=== PATIENT | female | born 1940 | race Caucasian/White ===

== ENCOUNTER 2018-11-02 18:00 | Inpatient (IN) | payer MEDICARE ==
[~2018-11-02] VITALS: Ht 162.6 cm; Wt 69.9 kg
[2018-11-02 18:43] LABS: BASOPHILS ABSOLUTE AUTO 0.12 K/mm3 (0.00-0.23); BASOPHILS PERCENT AUTO 1 % (0-2); EOSINOPHILS PERCENT AUTO 0 % (0-6); Hematocrit 47.6 % (33.0-51.0); Hemoglobin 15.9 g/dL (11.5-16.0); IMMATURE GRAN ABSOLUTE AUTO 0.41 K/mm3 (0.00-0.10); IMMATURE GRAN PERCENT AUTO 2 % (0-1); LYMPHOCYTES ABSOLUTE AUTO 0.33 K/mm3 (0.84-5.20); LYMPHOCYTES PERCENT AUTO 1 % (21-46); MONOCYTES ABSOLUTE AUTO 1.07 K/mm3 (0.16-1.47); MONOCYTES PERCENT AUTO 4 % (4-13); Mean Corpuscular HGB 29.9 pg (26.0-34.0); Mean Corpuscular HGB Conc 33.4 g/dL (31.5-36.5); Mean Corpuscular Volume 90 fL (80-100); Mean Platelet Volume 9.7 fL (9.1-12.4); NEUTROPHILS ABSOLUTE AUTO 24.67 K/mm3 (1.96-9.15); NEUTROPHILS PERCENT AUTO 93 % (41-73); NRBC ABSOLUTE 0.04 K/mm3 (0.00-0.02); NRBC Auto 0.2 /100 WBC (0.0-0.2); Platelet Count 465 K/mm3 (150-400); RDW Coefficient Variation 13.7 % (11.7-14.2); RDW Standard Deviation 44.1 fL (35.1-46.3); Red Blood Cell Count 5.31 M/mm3 (3.80-5.20)
[2018-11-02 18:57] LABS: International Normalized Ratio 1.19; Prothrombin Time Results 12.4 Sec (9.7-11.5)
[2018-11-02 19:03] LABS: BAND PERCENT MAN 33 % (0-8); BASOPHILS PERCENT MAN 0 % (0-2); EOSINOPHILS PERCENT MAN 0 % (0-6); METAMYELOCYTE ABSOLUTE MAN 0.79 K/mm3 (0.00-0.00); METAMYELOCYTE PERCENT MAN 3 % (0-0); MONOCYTES ABSOLUTE MAN 0.26 K/mm3 (0.16-1.47); MONOCYTES PERCENT MAN 1 % (4-13); NEUTROPHILS ABSOLUTE MAN 25.53 K/mm3 (1.96-9.15); SEG NEUTROPHILS PERCENT MAN 63 % (41-73); TOTAL CELLS COUNTED 100
[2018-11-02 19:10] LABS: Alanine Aminotransfer (ALT/SGP 81 U/L (12-78); Albumin, Blood 3.7 g/dL (3.4-5.0); Albumin/Globulin Ratio 0.8 (0.8-1.8); Alk Phos 57 U/L (50-136); Anion Gap 15 mmol/L (6-16); Aspartate Aminotrans (AST/SGOT 251 U/L (12-37); Bilirubin, Total 0.7 mg/dL (0.1-1.0); Blood Urea Nitrogen 41 mg/dL (8-24); Bun/Creatinine Ratio 9.1 (12.0-20.0); CO2, Blood 24 mmol/L (21-32); Calcium, Blood 9.3 mg/dL (8.5-10.1); Chloride, Blood 100 mmol/L (98-108); Creatinine, Blood 4.52 mg/dL (0.40-1.00); Ethanol (Alcohol), Blood, Med <3 mg/dL; Globulin, Blood 4.7 g/dL (2.2-4.0); Glomerular Filtration Rate 10 (60-); Glucose, Blood 138 mg/dL (70-99); Potassium, Blood 3.5 mmol/L (3.5-5.5); Sodium, Blood 139 mmol/L (136-145); Total Protein, Blood 8.4 g/dL (6.4-8.2)
[2018-11-02 19:33] LABS: U Amphetamine Screen Not Detected; U Barbituate Screen Not Detected; U Benzodiazapine Screen Not Detected; U Buprenorphine Screen Not Detected; U Cannabinoids Screen Not Detected; U Cocaine Screen Not Detected; U Methadone Screen Not Detected; U Methamphetamine Screen Not Detected; U Opiates Screen Not Detected; U Oxycodone Screen Not Detected; U Phencyclidine Screen Not Detected; U Propoxyphene Screen Not Detected
[2018-11-02 19:39] LABS: CPK Creatine Kinase 10164 U/L (26-193)
[2018-11-02 19:57] LABS: Creatine Kinase MB 168.7 ng/mL (0.0-3.6); Creatine Kinase MB Index 1.7 (0.0-4.0)
[2018-11-02 20:03] LABS: Source, Urine Catheter
[2018-11-02 20:07] LABS: Appearance, Urine Hazy (Clear); Bilirubin, Urine Neg (Neg); Blood, Urine 1+ (Neg); Color, Urine Amber (P-Yellow); Glucose Qualitative, Urine Neg (Neg); Ketones, Urine Neg (Neg); Leukocyte Esterase, Urine 3+ (Neg); Nitrite, Urine Neg (Neg); Protein, Urine 2+ (Neg); Specific Gravity, Urine 1.015 (1.003-1.022); Urobilinogen, Urine NORM (Normal); pH, Urine 6.5 (5.0-8.0)
[2018-11-02 20:13] LABS: Bacteria Many /hpf; Red Blood Cells, Urine 0-2 /hpf (0-2); Squamous Epithelial Cells Mod /hpf (Few); White Blood Cells, Urine TNTC /hpf (0-5)
[2018-11-02 21:24] LABS: Adenovirus F 40/41 Not Detected (NOT DETECT); Astrovirus Not Detected (NOT DETECT); Campylobacter Sp Not Detected (NOT DETECT); Cryptosporidium Not Detected (NOT DETECT); Cyclospora Cayetanensis Not Detected (NOT DETECT); E. Coli O157 Not Detected (NOT DETECT); Entamoeba Histolytica Not Detected (NOT DETECT); Enteroaggregative E. coli-EAEC Not Detected (NOT DETECT); Enteropathogenic E. coli-EPEC Not Detected (NOT DETECT); Enterotoxigenic E. coli-ETEC Not Detected (NOT DETECT); Giardia Lamblia Not Detected (NOT DETECT); Norovirus GI/GII Not Detected (NOT DETECT); Plesiomonas Shigelloides Not Detected (NOT DETECT); Rotavirus A Not Detected (NOT DETECT); Salmonella Sp Not Detected (NOT DETECT); Sapovirus Not Detected (NOT DETECT); Shiga Toxin-prod E. coli-STEC Not Detected (NOT DETECT); Shigella/Enteroin E. coli-EIEC Not Detected (NOT DETECT); Vibrio Cholerae Not Detected (NOT DETECT); Vibrio Sp Not Detected (NOT DETECT); Yersinia Enterocolitica Not Detected (NOT DETECT)
--- NOTE | 2018-11-02 21:35 | NUR ---
PT ARRIVAL TO UNIT. PT ARRIVED ON UNIT VIA GURNEY. PT WAS ADMITTED FOR DEE. MOON IS PRESENT, PLACED IN THE ED. PT IS LETHARGIC BUT RESPONDS TO VERBAL STIMULI, PT IS C/O OF N/V AND SEVERE DIARRHEA x3 DAYS. TELE WAS PLACED, NSR IN THE 80'S PER BALLISTICS TESTER, PT'S BP 127/73. PT HAS TRACE EDEMA TO HER BLE. L/S CLEAR T/O AND DIM IN THE BASES, PT IS ON 2L NC AT 95%. BT PRESENT AND HYPOACTIVE, ABD IS SOFT AND NONTENDER TO PALP. PT IS HAVING LIQUID GREEN, MUCOUSY STOOLS, AND DARK GREEN BILE EMISIS. PT'S SON AND DAUGHTER AT THE BEDSIDE. CALL LIGHT IN REACH, BED IS LOCKED AND LOW WILL CONTINUE TO MONITOR.
[2018-11-03] MEDS ORDERED: Lisinopril2.5 MG PO (00:51)
[2018-11-03] MEDS ORDERED: HYDCHL12.5 PO (00:53)
[2018-11-03] MEDS ORDERED: Zocor20 MG PO (00:53)
[2018-11-03 04:51] LABS: Hematocrit 41.2 % (33.0-51.0); Hemoglobin 13.5 g/dL (11.5-16.0); Mean Corpuscular HGB 29.5 pg (26.0-34.0); Mean Corpuscular HGB Conc 32.8 g/dL (31.5-36.5); Mean Corpuscular Volume 90 fL (80-100); Mean Platelet Volume 10.1 fL (9.1-12.4); Platelet Count 366 K/mm3 (150-400); RDW Coefficient Variation 13.9 % (11.7-14.2); RDW Standard Deviation 45.1 fL (35.1-46.3); Red Blood Cell Count 4.58 M/mm3 (3.80-5.20); White Blood Cell Count 22.69 K/mm3 (4.00-11.30)
[2018-11-03 05:15] LABS: Bun/Creatinine Ratio 11.9 (12.0-20.0); Calcium, Blood 7.6 mg/dL (8.5-10.1); Creatinine, Blood 4.55 mg/dL (0.40-1.00); Potassium, Blood 3.5 mmol/L (3.5-5.5)
--- NOTE | 2018-11-03 05:56 | NUR ---
SHIFT SUMMARY. PT'S MENTATION HAS GREATLY IMPROVED FROM ADMIT, PT IS ABLE TO ANSWER QUESTIONS APROPPRIATLY AND WAS ABLE TO PROVIDE HEALTH HISTORY, MEDICATIONS AND ALLERGIES. PT HAS EXTENSIVE FOOD AND MEDICATION ALLERGIES, PT IS UNABLE TO REMEMBER ALL OF THEM AT THIS TIME. PT DID STATE THAT SOME OF HER MEDICATION ALLERGIES ARE RELATED TO ANTIBIOTICS BUT SHE WAS UNABLE TO REMEMBER WHICH ONES, PT HAS HAD MULTIPLE ANTIBIOTICS AT THIS TIME AND HAS HAD NO REACTIONS TO THE CURRENT ONES SHE IS GETTING. PT'S URINARY OUTPUT WAS 35 MLS. PT'S OMON IS PATENT AND DRAINING DARK YELLOW, TURBID URINE TO GRAVITY, MOON IS SECURED TO THE BED. NO EDEMA IS NOTED AT THIS TIME, PT'S L/S ARE CLEAR. PT HAS NOT HAD ANY DIARRHEA SINCE APROX 0015. PT DENIES ANY N/V AT THIS TIME WELL. SCDS IN PLACE. PT HAS HAD A TMAX OF 101.2, PT IS CURRENTLY 99.5. PT ALSO TOLD THIS RN THAT SHE DID NOT WANT TO BE A DNR THAT SHE WANTED TO BE A FULL CODE AT THIS TIME. WILL CALL PROVIDER FOR CODE STATUS CHANGE. CALL LIGHT IN REACH, BED IS LOCKED AND LOW WILL CONTINUE TO MONITOR UNTIL REPORT IS GIVEN TO ONCOMING RN.
--- NOTE | 2018-11-03 06:27 | NUR ---
PT UPDATE... PROVIDER CALLED WITH PT CONCERN OF URINARY OUTPUT OF 35 MLS AND CODE STATUS CHANGE. ORDERS OBTAINED TO BLADDER SCAN TO ENSURE THAT MOON IS PATENT. BLADDER SCAN SHOWED 0 MLS. WILL CONTINUE TO MONITOR.
--- NOTE | 2018-11-03 08:20 | NUR ---
RECIEVED REPORT AND ASSUMED CARE OF PATIENT. SHE IS RESTING, BUT AWAKES WHEN ENTERING ROOM FOR REPORT. PT STATES SHE IS FEELING "A LITTLE BETTER" THIS MORNING. DR. REEVES TO SEE PATIENT, HE HAS PLACED A PROVIDER CONSULT FOR DR. DE LEÓN. THIS RN CALLED DR. DE LEÓN TO MAKE HIM AWARE OF CONSULT. HE STATES HE WILL COME TO SEE PATIENT. WILL CONTINUE TO FOLLOW ORDERS FOR PATIENT.
--- NOTE | 2018-11-03 10:52 | NUR ---
DR DE LEÓN IN TO SEE PATIENT. HE IS CHANGING FLUIDS AND MEDS FOR PATIENT. WILL FOLLOW ORDERS FOR THIS PATIENT.
--- NOTE | 2018-11-03 11:31 | NUR ---
DR DE LEÓN IN ROOM AND ASKS THIS RN TO GIVE 500 ML BOLUS AT THIS TIME. ALSO THIS RN REPORTED TO DR THAT ONLY 13 ML URINE WHEN BLADDER SCANNED. WILL CONTINUE TO MONITOR AND FOLLOW ORDERS.
--- NOTE | 2018-11-03 11:40 | NUR ---
PT HAVING FREQUENT INCONTINENT LIQUID STOOLS, GREEN IN COLOR. PLACING DIGNISHIELD RECTAL TUBE FOR SKIN PROTECTION FROM BREAKDOWN.
[2018-11-03] MEDS ORDERED: ALLEGRA ALLERG180 MG PO (16:17)
--- NOTE | 2018-11-03 16:24 | NUR ---
PT STATES THAT SHE NEEDS MORE BENYDRYL AT THIS TIME TO ADDRESS THIS ALLERGY ATTACK FROM THE DRY ERASE MARKERS. ADMINISTERED PER EMAR AND WILL HAVE TO CALL THE DOCTOR FOR FURTHER ORDERS.
--- NOTE | 2018-11-03 19:49 | NUR ---
PT HAD A GOOD DAY TODAY, SHE SAID SHE FEELS A LITTLE BETTER. INCREASED URINE OUTPUT THIS AFTERNOON IN MOON. RECTAL TUBE IN PLACE DRAINING LIQUID GREEN STOOL. PT ON ROOM AIR, NO SIGNIFICANT CHANGES FROM ASSESSMENT. SCDS IN PLACE, BED LOCKED AND LOW, HOB ELEVATED, CALL LIGHT WITHIN EASY REACH. CALLED DR. REEVES THIS AFTERNOON TO FIND OUT ABOUT BENADRYL DOSING, PT STATES SHE TAKES 12 PER DAY AT HOME WHEN SHE IS HAVING AN EXACERBATION. CALLED PHARMACY, THEY STATED PATIENT SHOULD NOT HAVE MORE THAN 300 MG OF BENADRYL PER DAY, ESPECIALLY WITH HER DEE AT THIS TIME. WILL FOLLOW ORDER ORIGINALLY WRITTEN, EDUCATED PATIENT REGARDING USE OF BENADRYL AND THE RISK OF FURTHER DAMAGING HER KIDNEYS BY TAKING TOO MUCH. PT EXPRESSED UNDERSTANDING.
[2018-11-04 04:05] LABS: BASOPHILS ABSOLUTE AUTO 0.04 K/mm3 (0.00-0.23); BASOPHILS PERCENT AUTO 0 % (0-2); EOSINOPHILS ABSOLUTE AUTO 0.54 K/mm3 (0.00-0.68); EOSINOPHILS PERCENT AUTO 4 % (0-6); Hematocrit 33.9 % (33.0-51.0); Hemoglobin 11.3 g/dL (11.5-16.0); IMMATURE GRAN PERCENT AUTO 1 % (0-1); LYMPHOCYTES ABSOLUTE AUTO 0.98 K/mm3 (0.84-5.20); LYMPHOCYTES PERCENT AUTO 7 % (21-46); MONOCYTES ABSOLUTE AUTO 0.62 K/mm3 (0.16-1.47); MONOCYTES PERCENT AUTO 4 % (4-13); Mean Corpuscular HGB 29.9 pg (26.0-34.0); Mean Corpuscular HGB Conc 33.3 g/dL (31.5-36.5); Mean Corpuscular Volume 90 fL (80-100); Mean Platelet Volume 10.3 fL (9.1-12.4); NEUTROPHILS ABSOLUTE AUTO 12.84 K/mm3 (1.96-9.15); NEUTROPHILS PERCENT AUTO 85 % (41-73); Platelet Count 287 K/mm3 (150-400); RDW Coefficient Variation 13.6 % (11.7-14.2); RDW Standard Deviation 44.9 fL (35.1-46.3); Red Blood Cell Count 3.78 M/mm3 (3.80-5.20); White Blood Cell Count 15.12 K/mm3 (4.00-11.30)
[2018-11-04 04:23] LABS: Albumin, Blood 2.2 g/dL (3.4-5.0); Anion Gap 11 mmol/L (6-16); Blood Urea Nitrogen 71 mg/dL (8-24); Bun/Creatinine Ratio 13.5 (12.0-20.0); CO2, Blood 24 mmol/L (21-32); Calcium, Blood 6.3 mg/dL (8.5-10.1); Chloride, Blood 104 mmol/L (98-108); Creatinine, Blood 5.26 mg/dL (0.40-1.00); Glomerular Filtration Rate 8 (60-); Glucose, Blood 98 mg/dL (70-99); Magnesium, Blood 2.1 mg/dL (1.6-2.4); Phosphorus, Blood 6.2 mg/dL (2.5-4.9); Potassium, Blood 2.8 mmol/L (3.5-5.5); Sodium, Blood 139 mmol/L (136-145)
--- NOTE | 2018-11-04 05:53 | NUR ---
SHIFT SUMMARY. ENC ALL NOC TO TURN COUGH AND DEEP BREATHE. GOOD EFFORT IN ALL. APPROPRIATE IN CONVERSING AND MAKING REQUESTS KNOWN. A LITTLE SLEEPY AT TIMES BUT DOES AROUSE AND ORIENTED . DID FORGET WHAT BUILDING SHE WAS IN. AWARE WHEN GREENISH LIQUID STOOL RUNS THROUGH RECTAL TUBE. 600 ML TOTAL. QS UO . CRACKLES NOTED IN RT BASE AND DEEP BREATHING AND FORCEFUL COUGH ATTEMPTED. FAIRLY WEAK AND KEEPS EYES CLOSED ALOT. ENC TO DO THINGS FOR SELF . IMPROVING W/ THIS EFFORT.1 PROSPER FOR HELP W/ SLEEP/ REVIEWED ALLERGIES TO KEEP COMFORTABLE . VERY PLEASANT AND SLEEPS ALOT. NO MUSLCE TWITCHING OR TREMORS. HELPS W/ TURNING. EATING BANANA AND DRINKS H2O
--- NOTE | 2018-11-04 17:00 | NUR ---
ASSUMED CARE OF PT APPROX. 0700. PT A&O X4. ASSESSMENT COMPLETED. VITAL SIGNS STABLE. PT REPROTS FEELING "VERY SLEEPY" THIS MORNING. PT ABLE TO HOLD CONVERSATIONS AND ANSWER QUESTIONS WITH NO TROUBLES. PT ON 1.5L OXYGEN VIA N.C. WITH SATS IN 90'S. PT AROUND 88-89 ON ROOM AIR. MOON REMAIN IN PLACE, PATENT AND DRAINING. RECTAL TUBE IN PLACE, PATENT AND DRAINING WELL. THIS MORNING AFTER RECIEVING BREAKFAST TRAY PT REQUESTED TO TALK WITH SOMEONE FROM DIETARY TO SEE ABOUT DIFFERENT FOOD OPTIONS TO TRY AND START TO EAT MORE. DIETARY IN TO SPEAK WITH PATIENT THIS MORNING. FAMILY AT BEDSIDE INTERMITTENTLY THIS MORNING. PT RESTING AT THIS TIME. BED IN LOW POSITION, BED ALARM ON AND CALL LIGHT IN REACH.
--- NOTE | 2018-11-04 19:29 | NUR ---
SHIFT SUPT PLEASANT COOPERATIVE AND USES CALL LIGHT APPROPRIATELY. PT REMAINS A&O X4.ASSESSMENT FINDINGS REMAIN UNCHANGES SINCE START OF SHIFT. VITAL SIGNS REMAIN STABLE. PT ABLE TO REST FOR MOST OF DAY. ENCOURAGED PT TO MOVE SELF IN BED AND EAT AT EACH MEAL. [facility]. ANSWERED QUESTIONS THEY CAME UP. BE DIN LOW POSITON, CALL LIGHT IN REACH AND PT DENIES ANY NEEDS AT THIS TIME. WILL CONTINUE TO MONITOR [facility]
[2018-11-05 04:09] LABS: BASOPHILS ABSOLUTE AUTO 0.04 K/mm3 (0.00-0.23); BASOPHILS PERCENT AUTO 0 % (0-2); EOSINOPHILS ABSOLUTE AUTO 0.14 K/mm3 (0.00-0.68); EOSINOPHILS PERCENT AUTO 1 % (0-6); Hematocrit 34.4 % (33.0-51.0); Hemoglobin 11.5 g/dL (11.5-16.0); IMMATURE GRAN ABSOLUTE AUTO 0.06 K/mm3 (0.00-0.10); IMMATURE GRAN PERCENT AUTO 1 % (0-1); LYMPHOCYTES ABSOLUTE AUTO 1.36 K/mm3 (0.84-5.20); LYMPHOCYTES PERCENT AUTO 14 % (21-46); MONOCYTES ABSOLUTE AUTO 0.54 K/mm3 (0.16-1.47); MONOCYTES PERCENT AUTO 6 % (4-13); Mean Corpuscular HGB 29.7 pg (26.0-34.0); Mean Corpuscular HGB Conc 33.4 g/dL (31.5-36.5); Mean Corpuscular Volume 89 fL (80-100); Mean Platelet Volume 10.5 fL (9.1-12.4); NEUTROPHILS ABSOLUTE AUTO 7.76 K/mm3 (1.96-9.15); NEUTROPHILS PERCENT AUTO 78 % (41-73); Platelet Count 274 K/mm3 (150-400); RDW Coefficient Variation 13.4 % (11.7-14.2); RDW Standard Deviation 43.7 fL (35.1-46.3); Red Blood Cell Count 3.87 M/mm3 (3.80-5.20)
--- NOTE | 2018-11-05 06:00 | NUR ---
SHIFT SUMMARY. PRESENTS VERY SLEEPY AT START OF SHIFT/ CLEAR MENTATION AND FREQ AROUSAL TO STAFF INSISTING TURN COUGH AND DEEP BREATH. FAIR GOOD EFFORT. DEEP BREATHING PROMOTES COUGH AND IMPROVES IN COUGH STRENGTH . TURNS SELF W/ MINIMAL ASSIST. SR, SB NOTED WHILE SLEEPING SOUNDLY . NO SKIN BREAKDOWN NOTED. FLUIDS AND HS SNACK ENC BUT REFUSES / . DK GREENISH FLUID NOTED SMALL FLOW THRU RECTAL TUB . MOSTLY WHEN COUGHING.. SKIN CLEANSED AND NO STOOL LEAKING. SEEMS CRACKLES REMAIN MOSTLY RT LOWER 1/3 / LOOSE COUGH RARE NON PROD.NO PAIN REPORTED.
[2018-11-05 07:32] LABS: Albumin, Blood 2.4 g/dL (3.4-5.0); Anion Gap 7 mmol/L (6-16); Blood Urea Nitrogen 61 mg/dL (8-24); Bun/Creatinine Ratio 13.6 (12.0-20.0); CO2, Blood 32 mmol/L (21-32); Calcium, Blood 6.5 mg/dL (8.5-10.1); Chloride, Blood 103 mmol/L (98-108); Creatinine, Blood 4.48 mg/dL (0.40-1.00); Glomerular Filtration Rate 10 (60-); Glucose, Blood 119 mg/dL (70-99); Magnesium, Blood 2.2 mg/dL (1.6-2.4); Phosphorus, Blood 3.5 mg/dL (2.5-4.9); Potassium, Blood 2.7 mmol/L (3.5-5.5); Sodium, Blood 142 mmol/L (136-145)
--- NOTE | 2018-11-05 10:10 | NUR ---
SHIFT SUMMARY PT A&OX3, VSS, NO ACUTE CHANGES DURING FIRST FEW HOURS OF SHIFT. RECTAL TUBE REMOVED PRIOR TO TRANSFER AND BRIEF PLACED. REPORT CALLED TO [facility]ER ON MEDICAL FLOOR. PT TRANSFERED VIA BED WITH BELONGINGS TO MEDICAL FLOOR.
--- NOTE | 2018-11-05 15:49 | NUR ---
SHIFT SUMMARY PCU TRANSFER THIS MORNING. NO ACUTE CHANGES. PATIENT DENIES PAIN AND SHORTNESS OF BREATH. PATIENT HAD EPISODE OF NAUSEA BUT DECLINED MEDICATION. FAMILY AT BEDSIDE. PATIENT WORKED WITH PT, UP ONE ASSIST W/ GAIT BELT FWW TO BSC TODAY. RED RICHARDS. CALL LIGHT IN REACH, WILL CONTINUE TO MONITOR.
[2018-11-06 04:58] LABS: BASOPHILS ABSOLUTE AUTO 0.05 K/mm3 (0.00-0.23); BASOPHILS PERCENT AUTO 1 % (0-2); EOSINOPHILS ABSOLUTE AUTO 0.18 K/mm3 (0.00-0.68); EOSINOPHILS PERCENT AUTO 2 % (0-6); Hematocrit 39.6 % (33.0-51.0); IMMATURE GRAN ABSOLUTE AUTO 0.05 K/mm3 (0.00-0.10); IMMATURE GRAN PERCENT AUTO 1 % (0-1); LYMPHOCYTES ABSOLUTE AUTO 2.14 K/mm3 (0.84-5.20); LYMPHOCYTES PERCENT AUTO 23 % (21-46); MONOCYTES ABSOLUTE AUTO 0.74 K/mm3 (0.16-1.47); MONOCYTES PERCENT AUTO 8 % (4-13); Mean Corpuscular HGB 29.4 pg (26.0-34.0); Mean Corpuscular HGB Conc 32.8 g/dL (31.5-36.5); Mean Corpuscular Volume 90 fL (80-100); Mean Platelet Volume 10.5 fL (9.1-12.4); NEUTROPHILS ABSOLUTE AUTO 6.26 K/mm3 (1.96-9.15); NEUTROPHILS PERCENT AUTO 67 % (41-73); Platelet Count 294 K/mm3 (150-400); RDW Coefficient Variation 13.4 % (11.7-14.2); RDW Standard Deviation 43.9 fL (35.1-46.3); Red Blood Cell Count 4.42 M/mm3 (3.80-5.20); White Blood Cell Count 9.42 K/mm3 (4.00-11.30)
[2018-11-06 05:16] LABS: Albumin, Blood 2.6 g/dL (3.4-5.0); Anion Gap 10 mmol/L (6-16); Blood Urea Nitrogen 46 mg/dL (8-24); CO2, Blood 27 mmol/L (21-32); Chloride, Blood 105 mmol/L (98-108); Creatinine, Blood 3.07 mg/dL (0.40-1.00); Glomerular Filtration Rate 16 (60-); Glucose, Blood 90 mg/dL (70-99); Magnesium, Blood 1.7 mg/dL (1.6-2.4); Phosphorus, Blood 2.7 mg/dL (2.5-4.9); Potassium, Blood 3.2 mmol/L (3.5-5.5); Sodium, Blood 142 mmol/L (136-145)
--- NOTE | 2018-11-06 06:36 | NUR ---
SHIFT SUMMARY PT IS A 78 Y/O FEMALE, ADMITTED FOR AN DEE. SHE IS A&O X 4, AND [place] [facility] [place] PT'S BP WAS ELEVATED DURING THE NIGHT AT 177/82. THE PT'S HEART RATE WAS LOW, IN THE 50S, THE PHARMACIST WAS CONSULTED TO VERIFY THAT HYDRALAZINE WOULD NOT OVERTLY AFFECT THE PT'S HEART RATE. AFTER SHE WAS MEDICATED, THE PT'S BP CAME DOWN TO 131/53. ALL OTHER VITALS STABLE. PT SLEPT WELL THROUGH THE NIGHT. SHE DENIED ANY COMPLAINTS OF PAIN OR SOB, BUT DID HAVE AN EPISODE OF NAUSEA AND EMESIS THIS AM, WHICH WAS TREATED WITH PRN ZOFRAN. NO OTHER ACUTE CHANGES IN PT CONDITION NOTED. WILL CONTINUE TO MONITOR AND TREAT PER EMAR.
--- NOTE | 2018-11-06 16:11 | NUR ---
SHIFT SUMMARY NO ACUTE CHANGES. PATIENT STATES SHE IS FEELING BETTER. PATIENT WORKED WITH PT TODAY. UP SBA TO BR. PATIENT DENIES PAIN, NAUSEA, AND SHORTNESS OF BREATH. PATIENT OXYGEN SATURATION ABOVE 95% ON ROOM AIR TODAY. FAMILY AT BEDSIDE. CALL LIGHT IN REACH, WILL CONTINUE TO MONITOR.
[2018-11-07 05:08] LABS: Hematocrit 39.2 % (33.0-51.0)
--- NOTE | 2018-11-07 05:17 | NUR ---
SHIFT SUMMARY PT HAD NO ISSUES NOTED. PT GIVEN ORDERED KCL. PT DAUGHTER STAYED NIGHT WITH PT. PT HAS SLEPT WELL T/O SHIFT. PT CURRENTLY SLEEPING IN NO DISTRESS. CALL LIGHT IN REACH
[2018-11-07 05:34] LABS: Albumin, Blood 2.6 g/dL (3.4-5.0); Anion Gap 10 mmol/L (6-16); Blood Urea Nitrogen 34 mg/dL (8-24); Bun/Creatinine Ratio 18.4 (12.0-20.0); CO2, Blood 26 mmol/L (21-32); Calcium, Blood 6.9 mg/dL (8.5-10.1); Chloride, Blood 106 mmol/L (98-108); Creatinine, Blood 1.85 mg/dL (0.40-1.00); Glomerular Filtration Rate 28 (60-); Glucose, Blood 88 mg/dL (70-99); Magnesium, Blood 1.5 mg/dL (1.6-2.4); Phosphorus, Blood 2.7 mg/dL (2.5-4.9); Potassium, Blood 3.4 mmol/L (3.5-5.5); Sodium, Blood 142 mmol/L (136-145)
[2018-11-07] MEDS ORDERED: Micro-K10 MEQ PO (10:04)
--- NOTE | 2018-11-07 14:04 | NUR ---
DISCHARGE PT DISCHARGED TO HOME. THIS RN EXPLAINED DISCHARGE INSTRUCTIONS AND MEDICATIONS TO PT AND PT'S DAUGHTER. THEY REPORT THEY UNDERSTAND. IV REMOVED WITHOUT DIFFICULTY. PT'S MEDICATIONS FAXED TO [facility] IN [place] PER PT REQUEST (DAUGHTER LIVE IN [place]). PT TRANSFERRED TO PRIVATE VEHICLE VIA WHEELCHAIR BY ASSISTANCE REPRESENTATIVE. PT'S BELONGINGS WITH PT.
--- NOTE | 2018-11-07 14:06 | NUR ---
POTASSIUM ORDERS THIS RN TALKED WITH DR. JOYA EARLIER ABOUT PT'S IV POTASSIUM ORDER AND NEW ORAL POTASSIUM ORDER HE PLACED. DR. JOYA ORDERED THIS RN TO NOT GIVE IV POTASSIUM AND GIVE ONLY THE ORAL. IV POTASSIUM WAS STOPPED SHORTLY AFTER STARTING IT AND ORAL POTASSIUM GIVEN PER ORDER.
== END 2018-11-07 13:24 | disposition home or self-care (01) | DRG 871 ==
LOC: ER 18:00 → PCU 20:25 → MEDS 11-05 10:38
PROVIDERS: Emergency Medicine; Hospitalist; Internal Medicine; Internal Medicine Nephrology; ADMIT Internal Medicine
DX: A41.89 Other specified sepsis (principal); N17.0 Acute kidney failure with tubular necrosis; G92 Toxic encephalopathy; J69.0 Pneumonitis due to inhalation of food and vomit; M62.82 Rhabdomyolysis; E87.3 Alkalosis; R65.20 Severe sepsis without septic shock; D64.9 Anemia, unspecified; E86.0 Dehydration; R19.7 Diarrhea, unspecified; E86.9 Volume depletion, unspecified; I12.9 Hypertensive chronic kidney disease with stage 1 through stage 4 chronic kidney disease, or unspecified chronic kidney disease; N18.9 Chronic kidney disease, unspecified; J45.909 Unspecified asthma, uncomplicated; Z87.891 Personal history of nicotine dependence; Z66 Do not resuscitate; E83.39 Other disorders of phosphorus metabolism; E87.6 Hypokalemia
CPT/HCPCS: 36415; 51702; 70450; 71045; 74176; 80048; 80053; 80069; 81001; 82550; 82553; 82947; 83605; 83735; 84132; 84145; 85014; 85018; 85025; 85027; 85610; 87040; 87086; 87507; 93005; 93010; 96361-59; 96365-59; 97110; 97162; 97530; 99285-25; G0480; J0360; J0696; J1644; J2405; J2543; J3475; J3480; J7030; J7040; J7050; J7070; J7120; Q0163

== ENCOUNTER 2019-07-03 00:07 | Emergency (ER) | payer MEDICARE, BC ==
[~2019-07-03] VITALS: Ht 152.4 cm; Wt 67.1 kg
[~2019-07-03 00:07] MED LIST: ALLEGRA ALLERG180 MG PO; HYDCHL12.5 PO; Lisinopril2.5 MG PO; Micro-K10 MEQ PO; Zocor20 MG PO
[2019-07-03 01:26] LABS: Source, Urine Clean Catch
[2019-07-03 01:38] LABS: Bilirubin, Urine Neg (Neg); Blood, Urine 3+ (Neg); Glucose Qualitative, Urine Neg (Neg); Ketones, Urine Neg (Neg); Leukocyte Esterase, Urine Neg (Neg); Nitrite, Urine Neg (Neg); Protein, Urine Neg (Neg); Urobilinogen, Urine NORM (Normal)
[2019-07-03 01:41] LABS: Appearance, Urine Clear (Clear); Color, Urine Yellow (P-Yellow)
[2019-07-03 01:46] LABS: Bacteria Rare /hpf; Red Blood Cells, Urine 0-2 /hpf (0-2); Squamous Epithelial Cells Few /hpf (Few); White Blood Cells, Urine Not Seen /hpf (0-5)
[2019-07-03 02:41] LABS: BASOPHILS ABSOLUTE AUTO 0.04 K/mm3 (0.00-0.23); BASOPHILS PERCENT AUTO 0 % (0-2); EOSINOPHILS ABSOLUTE AUTO 0.11 K/mm3 (0.00-0.68); EOSINOPHILS PERCENT AUTO 1 % (0-6); Hematocrit 37.8 % (33.0-51.0); Hemoglobin 12.7 g/dL (11.5-16.0); IMMATURE GRAN ABSOLUTE AUTO 0.03 K/mm3 (0.00-0.10); IMMATURE GRAN PERCENT AUTO 0 % (0-1); LYMPHOCYTES ABSOLUTE AUTO 1.81 K/mm3 (0.84-5.20); LYMPHOCYTES PERCENT AUTO 16 % (21-46); MONOCYTES ABSOLUTE AUTO 1.14 K/mm3 (0.16-1.47); MONOCYTES PERCENT AUTO 10 % (4-13); Mean Corpuscular HGB 30.9 pg (26.0-34.0); Mean Corpuscular HGB Conc 33.6 g/dL (31.5-36.5); Mean Corpuscular Volume 92 fL (80-100); Mean Platelet Volume 9.4 fL (9.1-12.4); NEUTROPHILS ABSOLUTE AUTO 8.54 K/mm3 (1.96-9.15); NEUTROPHILS PERCENT AUTO 73 % (41-73); Platelet Count 324 K/mm3 (150-400); RDW Coefficient Variation 13.1 % (11.7-14.2); RDW Standard Deviation 44.2 fL (35.1-46.3); Red Blood Cell Count 4.11 M/mm3 (3.80-5.20); White Blood Cell Count 11.67 K/mm3 (4.00-11.30)
[2019-07-03 03:03] LABS: Alanine Aminotransfer (ALT/SGP 17 U/L (12-78); Albumin, Blood 3.3 g/dL (3.4-5.0); Albumin/Globulin Ratio 0.9 (0.8-1.8); Alk Phos 53 U/L (50-136); Anion Gap 7 mmol/L (6-16); Aspartate Aminotrans (AST/SGOT 17 U/L (12-37); Bilirubin, Total 0.6 mg/dL (0.1-1.0); Blood Urea Nitrogen 10 mg/dL (8-24); Bun/Creatinine Ratio 19.3 (12.0-20.0); CO2, Blood 29 mmol/L (21-32); Chloride, Blood 102 mmol/L (98-108); Creatinine, Blood 0.52 mg/dL (0.40-1.00); Globulin, Blood 3.8 g/dL (2.2-4.0); Glomerular Filtration Rate >60 (60-); Glucose, Blood 131 mg/dL (70-99); Potassium, Blood 3.1 mmol/L (3.5-5.5); Sodium, Blood 138 mmol/L (136-145); Total Protein, Blood 7.1 g/dL (6.4-8.2)
== END 2019-07-03 04:25 | disposition home or self-care (01) ==
LOC: ER 00:07
PROVIDERS: Emergency Medicine
DX: R30.0 Dysuria (principal); R10.9 Unspecified abdominal pain; Z91.018 Allergy to other foods; Z91.013 Allergy to seafood; Z91.011 Allergy to milk products; Z88.5 Allergy status to narcotic agent; Z88.6 Allergy status to analgesic agent; Z88.8 Allergy status to other drugs, medicaments and biological substances; Z91.010 Allergy to peanuts; Z79.899 Other long term (current) drug therapy
CPT/HCPCS: 36415; 80053; 81001; 85025; 99283